=== PATIENT | male | born 1955 | race Caucasian/White ===

== ENCOUNTER 2019-07-15 05:31 | Inpatient (IN) | payer OTHER ==
[~2019-07-15] VITALS: Ht 177.8 cm; Wt 95.3 kg
[2019-07-15] MEDS ORDERED: ALVIMOPAN 12 MG CAPSULE PO ONE (06:07)
[2019-07-15] MEDS ORDERED: cefOXitin SODIUM 2 GM in D5W 100 ML IV ONE ×2 (07:00→07:15)
[2019-07-15] MEDS ORDERED: LISI40TA4 PO (07:14)
[2019-07-15] MEDS ORDERED: LIP10 PO (07:14)
[2019-07-15] MEDS ORDERED: AMLO2.5T2 PO (07:14)
[2019-07-15] MEDS ORDERED: ePHEDrine sulfate 50 MG/ML VIAL IM ONE (07:30)
[2019-07-15] MEDS ORDERED: MIDAZOLAM HCL 5 MG/5 ML VIAL IVP ONE (07:30)
[2019-07-15] MEDS ORDERED: fentaNYL CITRATE 250 MCG/5 ML AMP IV ONE (07:30)
[2019-07-15] MEDS ORDERED: PROPOFOL 200MG/ 20ML VIAL (DIPRIVAN) IV ONE (07:30)
[2019-07-15] MEDS ORDERED: DEXAMETHASONE SOD PHOSPHATE 4 MG/ML VIAL IVP ONE (07:30)
[2019-07-15] MEDS ORDERED: NS IRRIG SOLN 1000 ML IR ONE (07:30)
[2019-07-15] MEDS ORDERED: ONDANSETRON HCL 4 MG/2 ML VIAL IVP ONE (07:30)
[2019-07-15] MEDS ORDERED: GLYCOPYRROLATE 0.2 MG/ML VIAL IJ ONE (07:30)
[2019-07-15] MEDS ORDERED: METOPROLOL TARTRATE 5 MG/5 ML VIAL IVP ONE (07:30)
[2019-07-15] MEDS ORDERED: NEOSTIGMINE METHYLSULFATE 1 MG/ML, 10 ML VIAL IVP ONE (07:30)
[2019-07-15] MEDS ORDERED: DESFLURANE 15 MIN GAS INH ONE (07:30)
[2019-07-15] MEDS ORDERED: LR 1,000 ML IV.SOLN IV ONE (07:30)
[2019-07-15] MEDS ORDERED: ROCURONIUM BROMIDE 10 MG/ML (ZEMURON) IV ONE (07:30)
[2019-07-15] MEDS ORDERED: BUPIVACAINE LIPOSOME/PF 266 MG/20 ML VIAL INFIL ONE (07:30)
[2019-07-15] MEDS ORDERED: ACETAMINOPHEN 325 MG TABLET PO PRN (10:00)
[2019-07-15] MEDS ORDERED: HYDROmorphone 1 MG INJ. 1 MG/ML AMPUL IVP PRN ×2 (10:00→10:15)
[2019-07-15] MEDS ORDERED: HYDROcodone/ACETAMIN 5-325 MG TAB (NORCO/ VICODIN) PO PRN ×2 (10:00)
[2019-07-15] MEDS ORDERED: ONDANSETRON HCL 4 MG/2 ML VIAL IVP PRN ×2 (10:00→10:15)
[2019-07-15] MEDS ORDERED: MORPHINE 4 MG/ML INJ. SYRINGE IVP PRN (10:15)
[2019-07-15] MEDS ORDERED: LR 1,000 ML IV SCH (10:15)
[2019-07-15 10:24] LABS: HEMATOCRIT 42.2 % (36-54); HEMOGLOBIN 14.2 g/dL (14.0-18.0)
[2019-07-15 10:32] LABS: CALCIUM 8.5 mg/dL (8.4-11.0); CREATININE 1.33 mg/dL (0.55-1.30); POTASSIUM 4.3 mmol/L (3.5-5.1)
--- NOTE | 2019-07-15 11:00 | NUR ---
Initial Notes- Received pt from OR awake, abdominal dressing is dry and intact. Has abdominal binder on, has ZORAIDA x1, draining red. Enc. to use incentive spirometer. IVF infusing well. Ayala cath draining well. Oriented to environment and call light use. Call light in reach. Educate on pain mangement, deep breathing, incentive spirometer. pt verbalize understanding Will continue to monitor..
[2019-07-15 11:21] VITALS: BP_SYST 135
--- NOTE | 2019-07-15 11:31 | NUR ---
CONSULT MEDICAL MANAGEMENT DR GORDON [phone] S/W SONA WATERMAN
[2019-07-15] MEDS: D5/0.45 NS 1,000 ML IV SCH ×2 (12:03→21:17)
--- NOTE | 2019-07-15 13:55 | NUR ---
Notes- Resting at this time. Pain is controlled. Enc. to call if for pain med as needed. Pt verbalize understanding.
--- NOTE | 2019-07-15 14:54 | NUR ---
notes- Resting in bed, complain of just back pain, repositioned on is side. Pt feels better. will monitor.
[2019-07-15 16:30] VITALS: BP_SYST 131
--- NOTE | 2019-07-15 17:00 | NUR ---
INCENTIVE SPIROMETER Patient is using incentive spirometer effectively.
--- NOTE | 2019-07-15 17:17 | NUR ---
TEACHING Initial teaching about emptying ZORAIDA done. Verbalized understanding. Emptied ZORAIDA, 45 ml sanguinous output.
--- NOTE | 2019-07-15 18:48 | NUR ---
closing notes- Resting in bed, pain is control, afebrile. IVF infusing well. No acute distress noted. Will endorse.
--- NOTE | 2019-07-15 19:25 | NUR ---
CHANGE OF SHIFT; pt. awake when received, S/p colon resection to colostomy and repair parastomal hernia, dressing intact and ostomy bag. maintain bed rest. call light within reach. will assess later.
[2019-07-15 20:30] VITALS: BP_SYST 144
--- NOTE | 2019-07-15 20:30 | NUR ---
NOTES: VS checked. IV via left wrist area. pt. still NPO, ok with ice chips. able to move all extremities. maintain bed rest. arechiga cath to OSD with yellow urine output. instructed to turn to sides as needed. call light within reach, instructed to call if help needed and verbalized understanding.
[2019-07-15] MEDS: FAMOTIDINE PF 20 MG/2 ML VIAL IVP SCH (21:17)
[2019-07-15] MEDS: ALVIMOPAN 12 MG CAPSULE PO SCH (21:18)
--- NOTE | 2019-07-15 21:30 | NUR ---
NOTES: pt. been dozing on and off. condition observed. Addendum: 07/16/19 at 0329 by Alecia Roque RN late entry @ 2100 (07/15/19) new due antibiotic not available ,asked sandblaster supervisor for med (Cefoxitin)
[2019-07-15] MEDS ORDERED: VANCOMYCIN HCL 1000 MG/VIAL IV ONE ×2 (21:47→23:26)
[2019-07-15] MEDS ORDERED: VANCOMYCIN HCL 500 MG/VIAL IV ONE ×2 (21:48→23:26)
--- NOTE | 2019-07-15 22:30 | NUR ---
NOTES: another new IV antibiotic pop out ordered by Dr. Arreola for Vancomycin @ 7211 request given to the mixing supervisor.
[2019-07-15] MEDS: cefOXitin SODIUM 2 GM in D5W 100 ML IV SCH (22:51)
--- NOTE | 2019-07-15 23:00 | NUR ---
NOTES: pt. called and c/o post op abdominal pain, medicated with IV Dilaudid. repositioned self.
--- NOTE | 2019-07-16 | NUR ---
NOTES: pt. resting, noted relief from post op pain. pt. needs attended.
[2019-07-16 00:56] VITALS: BP_SYST 137
--- NOTE | 2019-07-16 02:00 | NUR ---
NOTES: pt. sleeping when made rounds. condition observed.
--- NOTE | 2019-07-16 04:30 | NUR ---
NOTES: continue to monitor. condition unchanged.
[2019-07-16] MEDS: D5/0.45 NS 1,000 ML IV SCH (06:27)
--- NOTE | 2019-07-16 06:30 | NUR ---
CLOSING NOTES; PT. REPOSITIONED. CHECKED ABDOMINAL SITE, BINDER IN PLACE J-JOSHI DRAINED @ 20CC SEROUS. IV F INTACT. STILL NPO WITH SOME ICE SHIPS. ADAM CATH INTACT. FOR FURTHER CARE AND ASSISTANCE. WILL ENDORSE TO INCOMING SHIFT. CALL LIGHT WITHIN REACH.
[2019-07-16 07:13] LABS: CALCIUM 8.4 mg/dL (8.4-11.0); CREATININE 0.95 mg/dL (0.55-1.30); TOTAL BILIRUBIN 0.9 mg/dL (0.0-1.0)
--- NOTE | 2019-07-16 07:30 | NUR ---
INITIAL NOTE PT RESTING IN BED, NO ACUTE DISTRESS NOTED, BREATHING EVEN AND UNLABORED. IVF INFUSING WELL. CALL LIGHT WITHIN REACH, BED IN LOW AND LOCKED POSITION WITH BED ALARM ON. SCD'S IN PLACE.
[2019-07-16 08:00] VITALS: BP_SYST 143
[2019-07-16] MEDS: ALVIMOPAN 12 MG CAPSULE PO SCH ×2 (08:46→21:07)
[2019-07-16] MEDS: FAMOTIDINE PF 20 MG/2 ML VIAL IVP SCH ×2 (08:47→21:07)
--- NOTE | 2019-07-16 08:47 | NUR ---
DR. MARLEE ZIMMER AT BEDSIDE EXAMINING PT. TO START PT ON CLEAR LIQUID DIET, CARIDAD ADAM, AND ALLOW PT TO BE CHAIR FAST. VERIFIED WITH READ BACK.
[2019-07-16] MEDS: ENOXAPARIN SODIUM 30 MG/0.3 ML SYRINGE SUBCUT SCH (08:48)
[2019-07-16 09:20] LABS: BASOPHILS % (AUTO) 0.4 % (0.0-2.0); EOSINOPHILS % (AUTO) 0.5 % (0.0-4.0); HEMOGLOBIN 13.1 g/dL (14.0-18.0); LYMPHOCYTES # (AUTO) 0.7 K/uL (1.0-5.5); LYMPHOCYTES % (AUTO) 11.9 % (20.5-51.5); MEAN CORPUSCULAR HEMOGLOBIN 35 pg (27-31); MEAN CORPUSCULAR HGB CONC 34 % (32-36); MEAN CORPUSCULAR VOLUME 105 fL (79.0-98.0); MONOCYTES # (AUTO) 0.5 K/uL (0.0-1.0); MONOCYTES % (AUTO) 8.2 % (1.7-9.3); NEUTROPHILS # (AUTO) 4.9 K/uL (1.8-7.7); PLATELET COUNT (AUTO) 234 K/uL (130-430); RED BLOOD CELL COUNT(AUTO) 3.71 MIL/uL (4.2-6.2); RED CELL DISTRIBUTION WIDTH 13.2 % (9.0-15.0); WHITE BLOOD COUNT (AUTO) 6.2 K/uL (4.8-10.8)
--- NOTE | 2019-07-16 10:16 | NUR ---
Nutrition Update Phoenix Scale 16 noted. Pt admitted for parastomal hernia without obstruction or gangrene. Diet: clear liquid BMI: 30.1 kg/m2 RD to follow per nutrition care standards.
--- NOTE | 2019-07-16 10:55 | NUR ---
DC ADAM OUTPUT 600CC, CLEAR AND [place]. PT TOLERATED WELL.
[2019-07-16] MEDS: cefOXitin SODIUM 2 GM in D5W 100 ML IV SCH (11:07)
[2019-07-16] MEDS: D5NS 1,000 ML IV SCH ×2 (11:16→23:13)
[2019-07-16 12:00] VITALS: BP_SYST 135
--- NOTE | 2019-07-16 13:00 | NUR ---
ZORAIDA DRAIN OUTPUT 35CC, PINK DRAINAGE. EDUCATED PT ON HOW TO DRAIN ZORAIDA DRAIN. PT VERBALIZED UNDERSTANDING AND DEMONSTRATED TEACH BACK.
--- NOTE | 2019-07-16 15:00 | NUR ---
RN ROUNDS ASSISTED PT UP TO BESIDE CHAIR. PT TOLERATED WELL. DENIES ANY PAIN OR DISCOMFORT.
--- NOTE | 2019-07-16 17:30 | NUR ---
RN ROUNDS PT AWAKE, DENIES ANY PAIN OR DISCOMFORT. WILL CONTINUE TO MONITOR.
--- NOTE | 2019-07-16 18:55 | NUR ---
CLOSING NOTE PT AWAKE, EATING DINNER. DENIES ANY PAIN OR DISCOMFORT AT THIS TIME. IVF INFUSING WELL. CALL LIGHT WITHIN REACH, BED IN LOW AND LOCKED POSITION. PT REFUSING SCD'S AT THIS TIME. ALL NEEDS MET THROUGHOUT SHIFT. PT CARE ENDORSED TO TRUER PINION AND WHEEL WANDA ADAIR.
--- NOTE | 2019-07-16 19:25 | NUR ---
CHANGE OF SHIFT; pt. awake, when received, resting, no acute distress. S/P colon resection with colostomy and repair of parastomal hernia, post op day 2. instructed to call nurse and use of call light for help. will assess later.
[2019-07-16 20:15] VITALS: BP_SYST 144
[2019-07-16] MEDS ORDERED: MAG-AL HYDROX/SIMETH 30 ML UDC PO PRN (21:00)
--- NOTE | 2019-07-16 21:15 | NUR ---
NOTES: pt. medicated fo c/o post op abdominal pain. repositioned self. encouraged to do deep breathing and use of incentive spirometer. started on clear liquid, tolerating oral fluids. no nausea nor vomiting. call light within reach. .
--- NOTE | 2019-07-16 23:30 | NUR ---
NOTES: pt. still awake, but pain better. J chau drained 25 cc serous, colostomy with lots of gas and released air, abdominal binder intact.
[2019-07-17 00:51] VITALS: BP_SYST 136
--- NOTE | 2019-07-17 01:39 | NUR ---
NOTES: pt. sleeping when checked. condition observed.
--- NOTE | 2019-07-17 05:02 | NUR ---
NOTES: pt. been sleeping. condition unchanged, continue to monitor. IVF infusing.
--- NOTE | 2019-07-17 06:24 | NUR ---
CLOSING NOTES; abdominal incision checked, dressing intact with binder. Payal dobson drained another 15 cc serous fluid, shown pt. how to empty. turn to sides. instructed on deep breathing. pt. ambulated to restroom and voided. IVF patent ,infusing well at same rate. for further care and assistance. will endorse to day shift. call light within reach.
[2019-07-17 08:00] VITALS: BP_SYST 154
--- NOTE | 2019-07-17 08:00 | NUR ---
initial notes rec patient awake alert sitting at the edge of the bed. denies pain. ivf infusing well. no infiltration noted. colostomy bag to the l side ontact. noted with small amount of dark reddish drainage. resp easy and unlabored and no osb oted. bed to the lowest position and side rails up/locked. call light withn reached.
[2019-07-17] MEDS: ALVIMOPAN 12 MG CAPSULE PO SCH (10:06)
[2019-07-17] MEDS: FAMOTIDINE PF 20 MG/2 ML VIAL IVP SCH (10:06)
[2019-07-17] MEDS: ENOXAPARIN SODIUM 30 MG/0.3 ML SYRINGE SUBCUT SCH (10:08)
[2019-07-17] MEDS ORDERED: ATORVASTATIN 10 MG TABLET PO SCH (10:15)
[2019-07-17] MEDS ORDERED: LISINOPRIL 20 MG TABLET PO SCH (10:15)
[2019-07-17] MEDS ORDERED: amLODIPine BESYLATE 5 MG TABLET PO SCH (10:15)
--- NOTE | 2019-07-17 10:30 | NUR ---
rounds due meds were given and davin well. resting comfortably and denies pain.
[2019-07-17 11:19] VITALS: BP_SYST 146
--- NOTE | 2019-07-17 12:24 | NUR ---
rounds ambulated to the br and davin well. denies pain. call light withn reached.
[2019-07-17] MEDS: D5NS 1,000 ML IV SCH (12:33)
[2019-07-17 15:05] VITALS: BP_SYST 153
[2019-07-17 17:19] VITALS: BP_SYST 153
--- NOTE | 2019-07-17 17:30 | NUR ---
rounds seen by dr paulino and ordered patient to go home.
--- NOTE | 2019-07-17 18:30 | NUR ---
closing notes colostomy bag was changed, stoma is pinkish. noted with loose black stool small in amount. lower abdominal dressing was changed. incision looks dry and clean. hussain intact. painted with betadine and was covered with fluffs and abd dressng. instructed patient also to drain zara and did a return demo with me and to record everytime he empties and bring to the dr's office on his appt day. understood the procedure. awaiting for to come and pick him up.
--- NOTE | 2019-07-17 19:45 | NUR ---
D/C Patient Patient given medication reconciliation form and D/C instructions. Exit Care provided. Patient verbalized understanding. MD discussed with patient the results and treatment provided. Ambulatory with steady gait for discharge to home. Patient in stable condition, ID band removed. IV catheter removed, intact and dressing applied, no active bleeding. Rx given. Patient educated on pain management. All belongings sent with patient.
== END 2019-07-17 19:45 | disposition home or self-care (01) | DRG 329 ==
LOC: SMU 05:31 → EDSTATUS 11:30
PROVIDERS: ADMIT Colon & Rectal Surgery; ATTEND Colon & Rectal Surgery
PROC: 0D1E0Z4 Bypass Large Intestine to Cutaneous, Open Approach (ICD-10-PCS; 2019-07-15)
PROC: 0WQF0ZZ Repair Abdominal Wall, Open Approach (ICD-10-PCS; 2019-07-15)
PROC: 0DBG0ZZ Excision of Left Large Intestine, Open Approach (ICD-10-PCS; principal; 2019-07-15 11:30)
DX: K43.5 Parastomal hernia without obstruction or gangrene (principal); N17.0 Acute kidney failure with tubular necrosis; N39.0 Urinary tract infection, site not specified; I10 Essential (primary) hypertension; E78.5 Hyperlipidemia, unspecified; F32.9 Major depressive disorder, single episode, unspecified; S01.21XA Laceration without foreign body of nose, initial encounter; X58.XXXA Exposure to other specified factors, initial encounter; N20.0 Calculus of kidney; E66.9 Obesity, unspecified; Z79.899 Other long term (current) drug therapy; Z85.048 Personal history of other malignant neoplasm of rectum, rectosigmoid junction, and anus; Y93.89 Activity, other specified; Y92.89 Other specified places as the place of occurrence of the external cause; Y99.8 Other external cause status; Z87.891 Personal history of nicotine dependence; Z83.3 Family history of diabetes mellitus; Z82.49 Family history of ischemic heart disease and other diseases of the circulatory system; Z81.8 Family history of other mental and behavioral disorders; Z68.30 Body mass index [BMI] 30.0-30.9, adult
CPT/HCPCS: 36415; 80048; 80053; 85018-TC; 85025; 86886; 86900; 86901; 87081; 88302; 88307; A4409; A5061; C1727; C9290; J0694; J1100; J1170; J1650; J2250; J2405; J2704; J2710; J3010; J3370; J3490; J7042; J7050; J7060; J7120